=== PATIENT | female | born 1985 | race Two or more races ===

== ENCOUNTER 2024-01-02 09:41 | Emergency (ER) | payer OTHER ==
[2024-01-02 10:14] VITALS: O2SAT 100
[2024-01-02 12:19] LABS: BASOPHILS # (AUTO) 0.1 10^3/uL (0.0-0.1); BASOPHILS % (AUTO) 0.6 %; EOSINOPHILS # (AUTO) 0.1 10^3/uL (0.0-0.7); EOSINOPHILS % (AUTO) 0.6 %; HGB - HEMOGLOBIN 13.7 g/dL (12.0-16.0); LYMPHOCYTES # (AUTO) 3.3 10^3/uL (1.5-3.5); LYMPHOCYTES % (AUTO) 40.6 %; MEAN CORPUSCULAR HEMOGLOBIN 30.6 pg (27.0-31.0); MEAN CORPUSCULAR HGB CONC 32.6 g/dL (32.0-36.0); MEAN CORPUSCULAR VOLUME 93.8 fL (81.0-99.0); MEAN PLATELET VOLUME 9.5 fL (7.9-10.8); MONOCYTES # (AUTO) 0.6 10^3/uL (0.0-1.0); MONOCYTES % (AUTO) 7.3 %; NEUTROPHILS # (AUTO) 4.1 10^3/uL (1.5-6.6); NEUTROPHILS % (AUTO) 50.8 %; PLT - PLATELET COUNT 349 10^3/uL (130-450); RED BLOOD COUNT 4.48 10^6/uL (4.20-5.40); RED CELL DISTRIBUTION WIDTH 12.7 % (12.0-15.0); WHITE BLOOD COUNT 8.1 x10^3/uL (4.8-10.8)
[2024-01-02 12:34] LABS: ALBUMIN 4.5 g/dL (3.2-5.5); ALBUMIN/GLOBULIN RATIO 1.6 (1.0-2.2); BILIRUBIN,TOTAL 0.6 mg/dL (0.2-1.0); CALCIUM 9.8 mg/dL (8.5-10.3); CREATININE 0.6 mg/dL (0.6-1.3); POTASSIUM 4.1 mmol/L (3.5-4.5); TOTAL PROTEIN 7.4 g/dL (6.4-8.9)
--- NOTE | 2024-01-02 12:49 | ED Physician Documentation ---
PD HPI HEADACHE - Stated complaint Stated Complaint: ANDERSON,NAUSEA,DIZZINESS - Chief complaint Chief Complaint: Neuro - History obtained from History obtained from: Patient - History of Present Illness Timing - onset: How many days ago (4) Timing - onset during: Light activity Timing - duration: Days (4) Timing - details: Gradual onset, Still present, Waxing and waning, Still present in ED Worst headache ever?: Worst headache ever? (not a severe headache per pt but does not get them in the past.) Quality: Throbbing, Aching, Other (pressure feeling at temples and around to back of head.) Associated symptoms: Nausea. No: Fever, Stiff neck, Vomiting, Eye pain Improved by: No: Rest, Meds (ibuprofen did not improve) Worsened by: No: Light, Noise Contributing factors: No: Recent illness, Trauma Similar symptoms before: Has not had sx before Review of Systems Constitutional: denies: Fever, Chills Eyes: denies: Loss of vision, Decreased vision, Photophobia Throat: denies: Sore throat Respiratory: denies: Cough GI: reports: Nausea. denies: Abdominal Pain Skin: denies: Rash, Lesions PD PAST MEDICAL HISTORY - Past Medical History Past Medical History: Yes Endocrine/Autoimmune: HyPOthyroidism - Past Surgical History Past Surgical History: Yes General: Cholecystectomy, Appendectomy Derm: Other - Present Medications Home Medications: Ambulatory Orders Medication Instructions Recorded Confirmed Amitriptyline [Elavil] 25 mg PO HS #15 tablet 01/02/24 HYDROcod/ACETAM 5/325 [[place] 5/325] 1 ea PO Q6H PRN #18 tablet 01/02/24 Meloxicam [Mobic] 7.5 mg PO BID 10 Days #20 tablet 01/02/24 Ondansetron Odt [Zofran] 4 mg TL Q6H PRN #10 tablet 01/02/24 dexAMETHasone [Decadron] 4 mg PO DAILY #5 tablet 01/02/24 - Allergies Allergies/Adverse Reactions: Allergies Allergy/AdvReac Type Severity Reaction Status Date / Time No Known Drug Allergies Allergy Verified 01/02/24 10:04 - Social History Does the pt smoke?: No Smoking Status: Never smoker Does the pt drink ETOH?: No Does the pt have substance abuse?: No - Immunizations Immunizations are current?: Yes - POLST Patient has POLST: No PD ED PE NORMAL - HEENT HEENT: Atraumatic, Ears normal, Pharynx benign - Neck Neck: Supple, no meningeal sign, No adenopathy - Derm Derm: Normal color, Warm and dry - Neuro Neuro: Alert and oriented X 3, validation specialist 2-12 intact, No motor deficit, No sensory deficit, Normal speech, Other Results - Vitals Vitals: Oxygen O2 Source Room air - Labs Labs: Laboratory Tests 01/02/24 01/02/24 01/02/24 12:13 12:13 12:13 WBC 8.1 RBC 4.48 Hgb 13.7 Hct 42.0 MCV 93.8 MCH 30.6 MCHC 32.6 RDW 12.7 Plt Count 349 MPV 9.5 Neut # (Auto) 4.1 Lymph # (Auto) 3.3 [place] # (Auto) 0.6 Eos # (Auto) 0.1 Baso # (Auto) 0.1 Absolute Nucleated RBC 0.00 Nucleated RBC % 0.0 Sodium 138 Potassium 4.1 Chloride 107 Carbon Dioxide 27 Anion Gap 4.0 L BUN 13 Creatinine 0.6 Estimated GFR (MDRD) 111 Glucose 89 Calcium 9.8 Total Bilirubin 0.6 AST 25 ALT 35 Alkaline Phosphatase 67 Total Protein 7.4 Albumin 4.5 Globulin 2.9 Albumin/Globulin Ratio 1.6 Lipase 26 TSH 0.04 L Free T4 Direct 1.55 Free T3 pg/mL 4.14 H Urine Color Urine Clarity Urine pH Ur Specific [place] Urine Protein Urine Glucose (UA) Urine Ketones Urine Occult Blood Urine Nitrite Urine Bilirubin Urine Urobilinogen Ur Leukocyte Esterase Ur Microscopic Review Urine Culture Comments Urine HCG, Qual 01/02/24 13:15 WBC RBC Hgb Hct MCV MCH MCHC RDW Plt Count MPV Neut # (Auto) Lymph # (Auto) [place] # (Auto) Eos # (Auto) Baso # (Auto) Absolute Nucleated RBC Nucleated RBC % Sodium Potassium Chloride Carbon Dioxide Anion Gap BUN Creatinine Estimated GFR (MDRD) Glucose Calcium Total Bilirubin AST ALT Alkaline Phosphatase Total Protein Albumin Globulin Albumin/Globulin Ratio Lipase TSH Free T4 Direct Free T3 pg/mL Urine Color YELLOW Urine Clarity CLEAR Urine pH 6.0 Ur Specific [place] 1.025 Urine Protein NEGATIVE Urine Glucose (UA) NEGATIVE Urine Ketones NEGATIVE Urine Occult Blood TRACE-INTA Urine Nitrite NEGATIVE Urine Bilirubin NEGATIVE Urine Urobilinogen 0.2 (NORMAL) Ur Leukocyte Esterase NEGATIVE Ur Microscopic Review NOT INDICATED Urine Culture Comments NOT INDICATED Urine HCG, Qual NEGATIVE - Rads (name of study) head CT Relevant Findings:: Prelim report reviewed, EMP independent interpretation of test (no acute process) PD Medical Decision Making - ED course Complexity details: reviewed results, re-evaluated patient (much improved ANDERSON with Toradol and tylenol. Can give dose of decadron for potential sinus or functional sustained ANDERSON> ), considered differential (not a severe sounding headache and does not involve neuro focal findings. However it does not sound migrainous either. Can get head CT as screening tool. Treat as function or sinjus ANDERSON. No illness nor fever, so not neeed for LP. Limited labs without notable abnormality. ), d/w patient Departure - Departure Disposition: 01 Home, Self Care Clinical Impression: Acute headache Qualifiers: Headache type: unspecified Intractability: intractable Qualified Code(s): R51.9 - Headache, unspecified Condition: Stable Record reviewed to determine appropriate education?: Yes Instructions: ED Cephalgia Unspecified Follow-Up: [facility] [Provider Group] Prescriptions: dexAMETHasone [Decadron] 4 mg PO DAILY #5 tablet Amitriptyline [Elavil] 25 mg PO HS #15 tablet Meloxicam [Mobic] 7.5 mg PO BID 10 Days #20 tablet HYDROcod/ACETAM 5/325 [[place] 5/325] 1 ea PO Q6H PRN #18 tablet PRN Reason: Pain Ondansetron Odt [Zofran] 4 mg TL Q6H PRN #10 tablet PRN Reason: Nausea / Vomiting Comments: Your head CT scan does not show any acute abnormalities. That said there can be other subtleties within the brain to cause headaches that may not be visible right off such as multiple sclerosis or such. However these are quite rare. Initially we typically feel the CT adequate for initial screening for more significant things such as bleeding tumors or swelling. None of these are seen. Your blood test is also good without any elevation of the white count or any abnormal sodium or anemia or diabetes. At this point I would presume functional headache such as sinus headache (though on the CT there was no signs of infection of the sinuses per se), acute daily headaches, atypical migraine or other similar. These would typically get treated with anti-inflammatories as well as nausea medicine and adding in Tylenol or pain medicine if needed. Try the combination of the dexamethasone, Zofran, Tylenol and then add hydrocodone if needed over the next several days and see if this improves and is gone. Follow-up with your primary care. I understand it can take a while sometimes to get into them. You can return to the ER if persisting or worsening symptoms in general. Otherwise neck step after these initial medicines if not improving well, would be to treat a little bit longer term over a couple of weeks with a combination of medications for daily headache, this would be a longer acting anti- inflammatory called meloxicam in combination with the medication at night called amitriptyline. Do not start or take these unless the initial round of medicines are not gotten any better. I sent your prescription to your preferred pharmacy. I am prescribing a short course of narcotic pain medication for you. These are potentially dangerous and addictive medications that should be used carefully. These medications may constipate you. Take an [id number] stool softener such as docusate twice daily with plenty of water while taking these medications. If you go 24 hours without a bowel movement, take [id number] MiraLAX, per package instructions. Do not drink or drive while taking these medications. If you received narcotic or sedating medications while in the emergency department do not drive for 24 hours. Store this medication in a safe, secure place and out of reach of children. It is a violation of federal law to give or sell this medication to another person or to use in a manner other than prescribed. The ED will not refill narcotic prescriptions, including prescriptions lost or stolen. You can dispose of unwanted medications at the [facility]'s office or at several pharmacies such as [facility]. Forms: PCP List Discharge Date/Time: 01/02/24 15:13
[2024-01-02] MEDS: ONDANSETRON ODT 4 MG TABLET TL STA (13:20)
[2024-01-02] MEDS: KETOROLAC 30 MG/ML VIAL IM STA (13:20)
[2024-01-02] MEDS: ACETAMINOPHEN 500 MG TABLET PO STA (13:20)
[2024-01-02] MEDS: dexAMETHasone 4 MG TABLET PO STA (13:20)
[2024-01-02 13:26] LABS: BILIRUBIN,URINE NEGATIVE (NEGATIVE); GLUCOSE, URINE (UA) NEGATIVE (NEGATIVE); KETONES,URINE (UA) NEGATIVE (NEGATIVE); LEUKOCYTE ESTERASE, URINE NEGATIVE (NEGATIVE); NITRITE,URINE NEGATIVE (NEGATIVE); OCCULT BLOOD,URINE TRACE-INTA (NEGATIVE); PROTEIN,URINE NEGATIVE (NEGATIVE); UROBILINOGEN,URINE 0.2 (NORMAL) E.U./dL (NORMAL)
[2024-01-02 13:27] LABS: CLARITY,URINE CLEAR (CLEAR)
[2024-01-02 13:29] LABS: HCG UR QUAL NEGATIVE
--- NOTE | 2024-01-02 14:06 | CT Report ---
PROCEDURE: CT brain without contrast INDICATIONS: ANDERSON increasing several days TECHNIQUE: Helical axial CT of the brain was obtained without contrast and reformatted in multiple p lanes. Radiation dose reduction was achieved using automated exposure control or adjustment of mA and /or kV according to patient size. COMPARISON: None FINDINGS: CSF spaces: Ventricles are appropriate in size and position. No hydrocephalus. Basal cisterns unre markable. Brain: No midline shift. No intracranial masses or hemorrhage. Horton-white matter interface is norm al. Skull and face: Calvarium and skull base are unremarkable without suspicious lesion. Sinuses: Visualized sinuses and mastoids are clear. IMPRESSION: Unremarkable CT of the brain Reviewed by: Scot Hoskins MD on 01/02/2024 1:05 PM [facility] Approved by: Scot Hoskins MD on 01/02/2024 1:05 PM [facility] Station ID: [id number]
[2024-01-02 15:14] VITALS: BP 121/68
[2024-01-02 15:34] LABS: THYROID STIMULATING HORMONE 0.04 uIU/mL (0.34-5.60)
== END 2024-01-02 15:13 | disposition home or self-care (01) ==
LOC: ED 09:41
DX: R51.9 Headache, unspecified (principal); E03.9 Hypothyroidism, unspecified
CPT/HCPCS: 36415; 70450; 80053; 81003; 81025; 83690; 84439; 84443; 84481; 85025; 96372; 99284; A9270; J8540; Q0162; 81001; 87086

== ENCOUNTER 2024-02-19 12:11 | Outpatient (CLI) | payer OTHER ==
--- NOTE | 2024-02-20 09:35 | Mammography Report ---
BILATERAL DIGITAL DIAGNOSTIC MAMMOGRAM 3D/2D WITH SPOT COMPRESSION: 02/19/2024 CLINICAL: Baseline exam. Nipple discharge, left breast, not bloody. No prior exams were available for comparison. Both breasts are heterogeneously dense, which may obscure small masses (category c / 51-75% glandular tissue). No significant masses, calcifications, or other findings are seen in either breast. IMPRESSION: INCOMPLETE: NEEDS ADDITIONAL IMAGING EVALUATION There is no abnormality seen in the left breast to correspond with the diffuse pain, however, clinica l followup is recommended. There is no abnormality seen in the left breast to correspond with the no n-bloody discharge from the nipple in the sub-areolar depth, however, ultrasound is recommended. Based on the Tyrer Cuzick model (a risk assessment model) the patient's lifetime risk is 6.7% and her 10 year risk is 0.7%. According to the ACR, ACS, and NCCN guidelines, an annual breast MRI exam annie g with mammogram is recommended if the patient's lifetime risk is 20% or greater. This exam was interpreted at Station ID: [id number]. NOTE: For mammograms, a report in lay terms will be sent to the patient. Approximately 15% of breast malignancies will not be visualized mammographically. In the management of a palpable breast mass, a negative mammogram must not discourage biopsy of a clinically suspicious lesion. Electronically Signed By: Aurelio ruano/navid:02/19/2024 16:07:19 ACR BI-RADS Category 0: Incomplete 3340F PARENCHYMAL PATTERN: (D) - The breast(s) demonstrate(s) heterogeneously dense fibroglandular paryolanda martinez. BI-RADS CATEGORY: (0) - 0 Ultrasound [id number] Immediate follow-up LATERALITY: (L)
--- NOTE | 2024-02-20 09:35 | Ultrasound Report ---
LIMITED ULTRASOUND OF LEFT BREAST: 02/19/2024 CLINICAL: Nipple discharge, left breast, not bloody. Comparison is made to exam dated: 02/19/2024 mammogram - [facility]. Color flow ultrasound of the left breast retroareolar was performed. Horton scale images of the real- time examination were reviewed. No significant abnormalities were seen sonographically in the left breast. IMPRESSION: NEGATIVE There is no sonographic evidence of malignancy. There is no abnormality seen in the left breast to correspond with the non-bloody discharge from the nipple in the sub-areolar depth, however, clinical followup is recommended. A 1 year screening mammogram is recommended. This exam was interpreted at Station ID: [id number]. Electronically Signed By: Aurelio ruano/navid:02/19/2024 16:08:03 letter sent: No_Letter Ultrasound BI-RADS: 1 Negative BI-RADS CATEGORY: (1) - 1 RECOMMENDATION: (ANNUAL) - Recommend routine annual screening mammography. [id number] 1 year screening LATERALITY: (B)
== END 2024-02-19 12:12 | disposition home or self-care (01) ==
LOC: DI 12:11
PROVIDERS: ATTEND Nurse Practitioner Family
DX: N64.4 Mastodynia (principal); R92.333 Mammographic heterogeneous density, bilateral breasts